=== PATIENT | female | born 1990 | race African-American/Black ===

== ENCOUNTER 2024-02-19 10:38 | Emergency (ER) | payer BC ==
[~2024-02-19] VITALS: Ht 167.6 cm; Wt 99.8 kg
[2024-02-19 11:15] VITALS: BP 100/76; O2SAT 96
[2024-02-19 11:50] LABS: HEMATOCRIT 35.7 % (36.0-45.00); HEMOGLOBIN 12.4 g/dL (12.0-15.00); MEAN CELL VOLUME 87.3 fL (80.00-100.00); MEAN CORPUSCULAR HEMOGLOBIN 30.3 pg (27.00-32.0); MEAN CORPUSCULAR HGB CONC 34.7 g/dl (32.0-36.0); PLATELET COUNT 238 K/uL (150-450); RED BLOOD COUNT 4.09 M/uL (4.00-6.00); RED CELL DISTRIBUTION WIDTH 13.1 % (11.5-14.5)
== END 2024-02-19 13:09 | disposition home or self-care (01) ==
LOC: ER 10:41
PROVIDERS: General Practice
DX: R04.2 Hemoptysis (principal); R05.9 Cough, unspecified; Z20.822 Contact with and (suspected) exposure to COVID-19; Z88.1 Allergy status to other antibiotic agents